=== PATIENT | male | born 1970 | race Caucasian/White ===

== ENCOUNTER → 2017-07-01 | Outpatient (CLI) | payer OTHER ==
[~2017-07-01] MED LIST: CLARITIN-D 24 H1 TA1 PO; DIMETAPP; DIMETAPP120 MG PO; FLOMAX PO; FLONASE 0.05%50 MCG NS; MEDROLDOSEPACK PO; NOHOMEMEDICATIONS; PERCOCET 5-3251 EACH PO; PREDNISONE 20 M20 M1 PO; TESSALON200 MG PO; ZOFRAN ODT4 MG PO; ZPAK PO
--- NOTE | 2017-07-09 14:59 | TST ---
[place] [address] [facility] STRESS TEST Name: WIL MORRIS Room: [facility]#: [id number] Admission: 07/01/17 Attend Phys: Physician not on s Discharge: Date of : 66 Date of Service: 07/01/17 1442 Report #: [id number] THIS REPORT FOR: //name// CC: JACQUELINE ESPARZA Physician staff Franchesca Villagomez Villagomez DATE OF SERVICE: 07/01/2017 TITLE OF PROCEDURE: Exercise stress test. INDICATIONS: Exercise stress test was requested in this patient with a history of an abnormal coronary artery calcium score. PROCEDURE: The patient was exercised on a Berto protocol from a pretest heart rate of 62, blood pressure 147/109. The patient was able to exercise for 10 minutes and 26 seconds on a Berto protocol and achieved a peak heart rate of 164, which was greater than 90% of maximum predicted heart rate for the patient's age. The peak blood pressure was 190/100. In recovery, the patient had a heart rate of 89, blood pressure 170/110. The patient denied chest pain with exercise, which was terminated because of shortness of breath and fatigue. The patient's resting ECG showed a normal sinus rhythm and there was no significant ST or T-wave change noted at baseline. With exercise, there were no arrhythmias noted. The patient did develop J-point depression with exercise, but there was no significant ST-segment depression noted at 80 milliseconds after the J-point. IMPRESSION: 1. Adequate exercise tolerance. 2. No chest pain with exercise. 3. No ischemic ST segment changes noted. 4. Negative exercise stress test for myocardial ischemia. 5. Low-risk exercise stress test for future cardiac events and sign. Risk exercise stress test for future cardiac events and sign. <ELECTRONICALLY SIGNED> By: Danny Carpenter MD, FACC 07/09/17 1459 1442 23 Danny Carpenter MD, FACC /nt
== END ==
LOC: M.CRD 10:19
DX: R93.1 Abnormal findings on diagnostic imaging of heart and coronary circulation (principal)

== ENCOUNTER → 2018-09-12 | Outpatient (CLI) | payer OTHER | LOC: M.CT 14:00 | DX: Z13.6 Encounter for screening for cardiovascular disorders (principal) ==